=== PATIENT | female | born 1995 | race Caucasian/White ===

== ENCOUNTER 2017-01-26 17:08 | Emergency (ER) | payer MEDICAID ==
[2017-01-26] MEDS ORDERED: Ondansetron ODT 4 MG TAB ONE (17:32)
== END 2017-01-26 17:38 | disposition home or self-care (01) ==
LOC: MADERS 17:08
DX: K52.9 Noninfective gastroenteritis and colitis, unspecified (principal)
CPT/HCPCS: 99283; Q0162

== ENCOUNTER 2017-03-28 18:16 | Emergency (ER) | payer MEDICAID ==
[2017-03-28 19:12] LABS: Pregnancy Test - Urine (BHCG) Negative (Negative); Pregu Control Background? CLEAR/WHITE (CLR/WHITE); Pregu Control Bar Appear? YES (CONTROL BAR)
[2017-03-28 19:18] LABS: Bacteria/HPF 2+ HPF (None Seen); Bilirubin Negative (Negative); Blood, Urine Trace (Negative); Clarity Hazy (Clear); Glucose, Urine (Dipstick) Negative (Negative); Leukocyte Negative (Negative); Nitrite Negative (Negative); Protein, Urine (Dipstick) Trace mg/dL (Neg-Trace); RBC/HPF 0-3 HPF (0-3); Urobilinogen 0.2 mg/dL (0.2-1.0); WBC/HPF 0-3 HPF (0-3)
[2017-03-28] MEDS ORDERED: Acetaminophen/Codeine 30-300mg Tablet ONE (19:29)
[2017-03-28] MEDS ORDERED: Diphenoxylate HCl/Atropine Tablet ONE (19:30)
[2017-03-28] MEDS ORDERED: Ondansetron ODT 4 MG TAB ONE (19:30)
== END 2017-03-28 19:42 | disposition home or self-care (01) ==
LOC: MADERS 18:16
DX: K52.9 Noninfective gastroenteritis and colitis, unspecified (principal); F17.210 Nicotine dependence, cigarettes, uncomplicated
CPT/HCPCS: 81001; 81025; 87086; 99284; Q0162

== ENCOUNTER 2017-05-08 08:52 | Emergency (ER) | payer MEDICAID ==
[2017-05-08] MEDS ORDERED: Ondansetron ODT 4 MG TAB ONE (09:17)
== END 2017-05-08 09:40 | disposition home or self-care (01) ==
LOC: MADERS 08:52
DX: A08.4 Viral intestinal infection, unspecified (principal); F17.210 Nicotine dependence, cigarettes, uncomplicated
CPT/HCPCS: 99283; Q0162

== ENCOUNTER 2017-08-25 17:39 | Emergency (ER) | payer MEDICAID, SELFPAY ==
[2017-08-25] MEDS ORDERED: Ondansetron ODT 4 MG TAB ONE (18:00)
== END 2017-08-25 18:07 | disposition home or self-care (01) ==
LOC: MADERS 17:39
DX: J11.1 Influenza due to unidentified influenza virus with other respiratory manifestations (principal); F41.9 Anxiety disorder, unspecified; F17.210 Nicotine dependence, cigarettes, uncomplicated
CPT/HCPCS: 99283; Q0162

== ENCOUNTER 2017-10-06 10:27 | Emergency (ER) | payer OTHER, SELFPAY ==
[2017-10-06 11:48] LABS: #Basophils 0.1 thou/uL (0.0-0.2); #Eosinphils 0.3 thou/uL (0.0-0.7); #Lymphocytes 3.1 thou/uL (1.20-3.40); #Monocytes 0.6 thou/uL (0.11-0.59); #Neutrophils 6.6 thou/uL (1.40-6.50); %Basophils 0.7 % (0.0-1.0); %Eosinophils 2.7 % (0.0-10.0); %Lymphocytes 28.9 % (21.0-51.0); %Monocytes 5.8 % (0.0-10.0); %Neutrophils 61.9 % (42.0-75.0); Hemoglobin 14.4 g/dL (12.0-16.0); Mean Corpuscular HGB CONC 33.3 g/dL (32.0-36.0); Mean Corpuscular Hemoglobin 30.8 pg (27.0-31.0); Mean Corpuscular Volume 92.6 fl (81.0-99.0); Mean Platelet Volume 7.1 fL (7.4-10.4); Platelet Count 236 thou/uL (130-400); RBC Distribution Width 12.3 % (11.5-14.5); Red Blood Cell (RBC) Count 4.66 mill/uL (4.20-5.40); White Blood Cell (WBC) Count 10.6 thou/uL (4.8-10.8)
[2017-10-06 11:51] LABS: Bilirubin Negative (Negative); Blood, Urine Small (Negative); Clarity Clear (Clear); Glucose, Urine (Dipstick) Negative (Negative); Leukocyte Negative (Negative); Nitrite Negative (Negative); Protein, Urine (Dipstick) Negative (Neg-Trace); Specific Gravity, Urine 1.025 (1.005-1.030); Urobilinogen 0.2 mg/dL (0.2-1.0); pH, Urine 5.5 (5.0-9.0)
[2017-10-06 11:56] LABS: RBC/HPF 0-3 HPF (0-3)
[2017-10-06 11:57] LABS: Bacteria/HPF Rare-Few HPF (None Seen); WBC/HPF 0-3 HPF (0-3)
[2017-10-06 12:07] LABS: ALT (SGPT) 19 U/L (8-55); AST (SGOT) 16 U/L (5-34); Albumin 4.3 g/dL (3.5-5.0); Alkaline Phosphatase 54 U/L (40-150); Anion Gap 15 mmol/L (10-20); BUN (Urea Nitrogen) 9 mg/dL (7.0-18.7); Bilirubin, Total 0.4 mg/dL (0.2-1.2); Calc. Creatinine Clearance 0 mL/min (70-130); Calcium 9.9 mg/dL (7.8-10.44); Carbon Dioxide 23 mmol/L (22-29); Chloride 104 mmol/L (98-107); Estimated GFR-MDRD Greater than 90; Glucose 89 mg/dL (70-105); Potassium 3.9 mmol/L (3.5-5.1); Protein, Total 7.3 g/dL (6.0-8.3); Sodium 138 mmol/L (136-145)
== END 2017-10-06 13:50 | disposition home or self-care (01) ==
LOC: MADERS 10:27
DX: J06.9 Acute upper respiratory infection, unspecified (principal); F41.9 Anxiety disorder, unspecified; F17.210 Nicotine dependence, cigarettes, uncomplicated
CPT/HCPCS: 36415; 80053; 81001; 85025; 87081; 87086; 87430; 87804; 99284

== ENCOUNTER 2019-01-21 16:33 | Emergency (ER) | payer OTHER, SELFPAY | END 2019-01-21 17:26 | disposition home or self-care (01) | LOC: MADERS 16:33 | DX: H66.91 Otitis media, unspecified, right ear (principal); F41.9 Anxiety disorder, unspecified; F17.210 Nicotine dependence, cigarettes, uncomplicated | CPT/HCPCS: 99283 ==

== ENCOUNTER 2019-06-25 13:04 | Emergency (ER) | payer OTHER ==
[2019-06-25] MEDS ORDERED: Ondansetron ODT 4 MG TAB ONE (14:10)
[2019-06-25] MEDS ORDERED: Oseltamivir 75 MG CAP ONE (14:10)
== END 2019-06-25 14:14 | disposition home or self-care (01) ==
LOC: MADERS 13:04
DX: J10.1 Influenza due to other identified influenza virus with other respiratory manifestations (principal); F41.9 Anxiety disorder, unspecified; F17.210 Nicotine dependence, cigarettes, uncomplicated
CPT/HCPCS: 99283; Q0162

== ENCOUNTER 2022-03-03 13:08 | Emergency (ER) | payer OTHER, SELFPAY | END 2022-03-03 14:27 | disposition home or self-care (01) | LOC: MADERS 13:08 | DX: U07.1 COVID-19 (principal); N83.209 Unspecified ovarian cyst, unspecified side; F17.210 Nicotine dependence, cigarettes, uncomplicated | CPT/HCPCS: 99283; U0003; U0005 ==

== ENCOUNTER 2022-04-30 08:30 | Emergency (ER) | payer OTHER | END 2022-04-30 09:05 | disposition home or self-care (01) | LOC: MADERS 08:30 | DX: R53.81 Other malaise (principal); F17.210 Nicotine dependence, cigarettes, uncomplicated | CPT/HCPCS: 99284 ==